=== PATIENT | male | born 1960 | race Caucasian/White ===

== ENCOUNTER → 2018-06-22 22:04 | Outpatient (REF) | payer OTHER, SELFPAY ==
[2018-06-23 01:21] LABS: Hemoglobin A1C% w Est Avg Glu 5.9 % (4.0-6.0)
[2018-06-23 02:37] LABS: Prostate Specific Antigen 0.627 ng/mL (0.10-4.00)
[2018-06-23 03:00] LABS: Hep C Virus Ab w/Reflex Quant NEGATIVE s/c (NEGATIVE)
[2018-06-25 19:37] LABS: C Peptide 2.74 ng/mL (0.80-3.85)
== END ==
LOC: LAB 22:04
PROVIDERS: Visit Provider Family Medicine Addiction Medicine
DX: E11.9 Type 2 diabetes mellitus without complications (principal); E29.1 Testicular hypofunction; Z79.899 Other long term (current) drug therapy
CPT/HCPCS: 36415; 83036; 84153; 84681; 86803

== ENCOUNTER → 2018-12-04 17:09 | Outpatient (CLI) | payer OTHER, SELFPAY | PROVIDERS: Visit Provider Physician Assistant | DX: B99.8 Other infectious disease (principal); W57.XXXA Bitten or stung by nonvenomous insect and other nonvenomous arthropods, initial encounter | CPT/HCPCS: 87070; 87075; 87205 ==

== ENCOUNTER → 2019-07-17 15:35 | Outpatient (CLI) | payer OTHER, SELFPAY ==
--- NOTE | 2019-07-17 15:51 | DI.CT.S_ITS ---
PROCEDURE: CT CHEST WO CON INDICATIONS: HEMOPTYSIS, Possible pneumonia or tear TECHNIQUE: Noncontrast 5 mm thick sections acquired from the pulmonary apices to the posterior costophrenic angles. 1 mm lung window, 5 mm thick coronal and sagittal and 7 mm axial MIP reformats were then acquired. For radiation dose reduction, the following was used: automated exposure control, adjustment of mA and/or kV according to patient size. COMPARISON: None. FINDINGS: Image quality: Excellent. Lungs and pleura: There is a left-sided pneumonia pattern, involving the upper and lower lobes, without associated central mass or pleural effusion. The right lung appears normal. No pneumothorax. Central and peripheral airways are patent and normal in caliber. Mediastinum: Heart size is normal. No pericardial effusion. No mediastinal adenopathy by size criteria. Thoracic aorta and central pulmonary arteries are normal in size. Esophagus is mildly enlarged in caliber and contains fluid and a small amount of debris. No hiatal hernia. Bones and chest wall: No suspicious bony lesions. No vertebral body compression fractures. No axillary or supraclavicular adenopathy by size criteria. Thyroid gland is not well-seen by this noncontrast technique. Abdomen: Visualized upper abdominal solid organs and bowel loops appear normal in the absence of contrast. IMPRESSION: 1. Left upper and lower lobe pneumonia, no right-sided pneumonia found. No sign of pleural effusion or pneumothorax. 2. Incidental note is made of mild dilatation of the esophagus with presence of fluid and a small amount of debris within the esophagus at time of scanning. Please note that this can represent an early manifestation of distal esophageal mass or stricture and followup assessment of the esophagus likely is warranted either by esophagram or endoscopy, and depending on the clinical status. Dictated by: Jose Miguel Kamara M.D. on 07/18/2019 at 9:19 Approved by: Jose Miguel Kamara M.D. on 07/18/2019 at 9:24
== END ==
PROVIDERS: PCP Family Medicine Addiction Medicine; Referring Provider Family Medicine Addiction Medicine; Visit Provider Family Medicine Addiction Medicine
DX: J18.9 Pneumonia, unspecified organism (principal); R04.2 Hemoptysis; K22.8 Other specified diseases of esophagus
CPT/HCPCS: 71250

== ENCOUNTER → 2019-07-27 15:11 | Outpatient (CLI) | payer OTHER, SELFPAY ==
--- NOTE | 2019-07-27 | DI.RAD.S_ITS ---
PROCEDURE: XR CHEST 2V INDICATIONS: PNEUMONIA TECHNIQUE: 2 views of the chest were acquired. COMPARISON: [facility], CT, CT CHEST WO CON, 07/17/2019, 16:15. FINDINGS: Surgical changes and devices: None. Lungs and pleura: Lungs are abnormal with a persistent mild pneumonia pattern at the left lung base posterior to the heart, but improved more superiorly over the left upper lobe with reference to the prior CT scanning performed 07/17/19. No pleural effusions or pneumothorax. Mediastinum: Mediastinal contours are normal. Heart size is normal. Bones and chest wall: No suspicious bony abnormalities. Soft tissues appear unremarkable. IMPRESSION: Improvement in left upper lobe pneumonia, persistent left lower lobe pneumonia behind the heart. Dictated by: Jose Miguel Kamara M.D. on 07/27/2019 at 16:41 Approved by: Jose Miguel Kamara M.D. on 07/27/2019 at 16:44
== END ==
PROVIDERS: PCP Family Medicine Addiction Medicine; Referring Provider Family Medicine Addiction Medicine; Visit Provider Family Medicine Addiction Medicine
DX: J18.9 Pneumonia, unspecified organism (principal)
CPT/HCPCS: 71046

== ENCOUNTER 2019-08-01 19:44 | Emergency (ER) | payer OTHER, SELFPAY ==
[2019-08-01 20:13] VITALS: BP 135/79; PULSE 95; RESP 18; TEMP 36.8; O2SAT 99; BMI 37.5
--- NOTE | 2019-08-01 20:30 | DI.RAD.S_ITS ---
PROCEDURE: XR CHEST 2V INDICATIONS: sob, recent peumonia TECHNIQUE: 2 views of the chest were acquired. COMPARISON: [facility], CR, XR CHEST 2V, 07/27/2019, 15:11. FINDINGS: Surgical changes and devices: None. Lungs and pleura: Ill-defined air space opacity in bilateral lower lung hauser are seen concerning for bilateral lower lobe patchy infiltrates. No pleural effusions or pneumothorax. Mediastinum: Mediastinal contours are normal. Heart size is normal. Bones and chest wall: No suspicious bony abnormalities. Soft tissues appear unremarkable. IMPRESSION: Findings concerning for bilateral lower lobe small patchy infiltrates. Dictated by: Harrison Perez M.D. on 08/01/2019 at 21:11 Approved by: aHrrison Perez M.D. on 08/01/2019 at 21:12
--- NOTE | 2019-08-01 20:32 | ED_ITS ---
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 He has been treated for pneumonia with 2 different antibiotics since the beginning of this month. He has had a chest CT on 07/17/2019 as well as a chest x-ray on 07/27/2019. He was told on 07/27/2019 that his pneumonia was improving, but had had not fully resolved. He denies any chest pain or shortness of breath. He states his cough is dry, nonproductive he denies any abdominal pain nausea vomiting or diarrhea. Chart review illustrate chest CT on 07/16 illustrated left upper and lower lobe pneumonia. Also noted to have incidental mild dilation of esophagus. Patient states that they are planning on a scope after his pneumonia has resolved. Patient states that he was placed on a Z-Armaan after this. Repeat chest x-ray shows improvement of left upper lobe pneumonia on 07/26 but persistent left lower lobe pneumonia. He states that he was placed on a 10 day course of an antibiotic called cesspin. Patient states that he comes to the emergency department because his gave him the choice of coming to the emergency department or her calling 911. He states he feels tired, but overall improved since he started his antibiotics. He also has a history of hypertension on lisinopril and a diuretic, and is on a statin as well. Related Data Home Medications Medication Instructions Recorded Confirmed atorvastatin 40 mg tablet 40 mg PO DAILY 12/04/18 12/04/18 buprenorphine 8 mg-naloxone 2 mg 1 film SL DAILY 12/04/18 12/04/18 sublingual film furosemide 20 mg tablet 20 mg PO DAILY 12/04/18 12/04/18 lisinopril 20 mg tablet 20 mg PO DAILY 12/04/18 12/04/18 pantoprazole PO 12/04/18 12/04/18 Previous Rx's Medication Instructions Recorded mupirocin 2 % topical ointment 1 applic TOP BID #30 gram 12/04/18 doxycycline hyclate 100 mg PO BID #20 cap 08/01/19 Allergies Allergy/AdvReac Type Severity Reaction Status Date / Time Penicillins Allergy Severe skin Verified 12/04/18 14:02 peeled off Review of Systems <Maddy WoodsANDIP- - Last Filed: 08/01/19 20:49> Review of Systems Narrative: GENERAL: Denies chills, fatigue, malaise, fever, sweats. HEENT: Denies sinus pain, ear pain, sore throat, difficulty swallowing, dizziness. RESPIRATORY: See HPI CARDIOVASCULAR: Denies chest pain, palpitations, orthopnea, edema, GASTROINTESTINAL: Denies nausea, vomiting, abdominal pain, diarrhea, constipation, melena. : Denies dysuria, frequency, incontinence, hematuria, urinary retention. MUSCULOSKELETAL: denies weakness, joint pain, or bony pain SKIN: Denies rash, skin lesions, or other NEUROLOGIC: Denies weakness, headache, numbness, change in speech, confusion, seizures, incoordination. PSYCHIATRIC: No concerning psychosocial issues. 12 point review of systems is negative except for those stated above Patient History <Maddy White PineANDI bishopUNIV[facility] - Last Filed: 08/01/19 20:49> Medical History (Updated 08/01/19 @ 23:20 by Maddy Rios DO) Hypertension (Acute) Type 2 diabetes mellitus (Acute) tobacco type: vaping alcohol intake frequency: a few times a week Substance Use Type: does not use Exam <MaddyANDI LiebermanUNIVERS[facility] - Last Filed: 08/01/19 20:49> Narrative Exam Narrative: GENERAL: Obese male in no acute distress wearing mass HEAD: Atraumatic. Normocephalic. No temporal or scalp tenderness. EYES: Pupils equal round and reactive. Extraocular motions intact. No scleral icterus. No injection or drainage. ENT: Nose without bleeding, purulent drainage or septal hematoma. Throat without erythema, tonsillar hypertrophy or exudate. Uvula midline. Airway patent. Bilateral TMs pearly dawkins. NECK: Trachea midline. No JVD or lymphadenopathy. Supple, nontender, no meningeal signs. CARDIOVASCULAR: Regular rate and rhythm RESPIRATORY: Clear to auscultation. Breath sounds equal bilaterally. No wheezes, rales, or rhonchi. No cough. No increased respiratory effort. Speaking full sentences. GASTROINTESTINAL: Abdomen soft, non-tender, nondistended. No hepato- splenomegaly, or palpable masses. No guarding. EXTREMITIES: No clubbing, cyanosis, or edema. No joint tenderness, effusion, or edema noted. BACK: Nontender without deformity or crepitance. No flank tenderness. NEURO: AOx3. SKIN: No rash or erythema on visible skin Initial Vital Signs Initial Vital Signs: Vital Signs Temperature 98.3 F 08/01/19 20:13 Pulse Rate 95 H 08/01/19 20:13 Respiratory Rate 18 08/01/19 20:13 Blood Pressure 135/79 08/01/19 20:13 Pulse Oximetry 99 08/01/19 20:13 <DO William Caruso Last Filed: 08/02/19 01:50> Initial Vital Signs Initial Vital Signs: Vital Signs Temperature 98.3 F 08/01/19 20:13 Pulse Rate 95 H 08/01/19 20:13 Respiratory Rate 18 08/01/19 20:13 Blood Pressure 135/79 08/01/19 20:13 Pulse Oximetry 99 08/01/19 20:13 Course <ABBY Kincaid - Last Filed: 08/01/19 20:49> Course Course Narrative: Patient care initiated by myself and patient signed out to Dr. Rios at 9:00 p.m. with lab work and imaging and respiratory panel pending. Orders Ordered: ED Orders 08/01/19 20:09 Respiratory Panel (Film Array) Stat 08/01/19 20:30 XR chest 2V Stat 08/01/19 21:45 Complete Blood Count AUTO DIFF Stat Comprehensive Metabolic Panel Stat NT-proBNP (BNP-Adult 18+) Stat Procalcitonin Stat Vital Signs Vital signs: Vital Signs - 8 hr 08/01/19 20:13 08/01/19 23:51 Temperature 98.3 F Pulse Rate 95 H 70 Respiratory Rate 18 16 Blood Pressure 135/79 124/60 Pulse Oximetry 99 97 <DO William Caruso Last Filed: 08/02/19 01:50> Orders Ordered: ED Orders 08/01/19 20:09 Respiratory Panel (Film Array) Stat 08/01/19 20:30 XR chest 2V Stat 08/01/19 21:45 Complete Blood Count AUTO DIFF Stat Comprehensive Metabolic Panel Stat NT-proBNP (BNP-Adult 18+) Stat Procalcitonin Stat Vital Signs Vital signs: Vital Signs - 8 hr 08/01/19 20:13 08/01/19 23:51 Temperature 98.3 F Pulse Rate 95 H 70 Respiratory Rate 18 16 Blood Pressure 135/79 124/60 Pulse Oximetry 99 97 MDM - SOB/Dyspnea <Maddy Woods, MACHINE SETTER AND REPAIRER-BC - Last Filed: 08/01/19 20:49> Lab Data Result diagrams: 08/01/19 21:45 08/01/19 21:45 Labs: Lab Results 08/01/19 08/01/19 08/01/19 Range/Units 20:09 21:45 21:45 WBC 5.7 (4.5-11.0) X10^3/uL RBC 4.58 (4.5-5.9) X10^6/uL Hgb 13.5 (13.5-17.5) g/dL Hct 39.7 L (41-53) % MCV 86.6 (80-100) fL MCH 29.5 (26-34) PG MCHC 34.0 (30-36) % RDW 12.9 (11.6-14.8) % Plt Count 286 (150-400) X10^3/uL Neut % (Auto) 58.6 (50-75) % Lymph % (Auto) 29.2 (25-40) % Nobles % (Auto) 10.2 (3-14) % Eos % (Auto) 1.1 L (2-4) % Baso % (Auto) 0.9 (0-2) % Neut # (Auto) 3400 (2711-5185) /uL Lymph # (Auto) 1700 (0336-3861) /uL Nobles # (Auto) 600 (0-900) /uL Eos # (Auto) 100 (0-450) /uL Baso # (Auto) 100 (0-100) /uL Sodium 135 L (137-145) mmol/L Potassium 4.0 (3.4-5.1) mmol/L Chloride 100 (98-107) mmol/L Carbon Dioxide 28 (22-32) mmol/L BUN 19 (9-20) mg/dL Creatinine 0.75 (0.66-1.25) mg/dL Estimated GFR > 60.0 (>60) mL/min BUN/Creatinine Ratio 25.3 H (6-22) Glucose 258 H (70-100) mg/dL Calcium 9.1 (8.4-10.2) mg/dL Total Bilirubin 0.5 (0.2-1.3) mg/dL AST 49 (17-59) IU/L ALT 56 H (<50) IU/L Alkaline Phosphatase 72 (38-126) U/L NT-Pro-B Natriuret Pep 53 (<125) pg/mL Total Protein 7.5 (6.3-8.2) g/dL Albumin 4.3 (3.5-5.0) g/dL Globulin 3.2 (1.7-4.1) g/dL Albumin/Globulin Ratio 1.3 (1.0-2.8) Procalcitonin (<0.5) ng/mL Chlamy pneumoniae PCR Not detected (Not Detect) Adenovirus (PCR) Not detected (Not Detect) B.parapertussis DNA PCR Not detected (Not Detect) Coronavirus OC43 (PCR) Not detected (Not Detect) Coronavirus HKU1 (PCR) Not detected (Not Detect) Coronavirus 229E (PCR) Not detected (Not Detect) Coronavirus NL63 (PCR) Not detected (Not Detect) Human Metapneumovir PCR Not detected (Not Detect) Influenza Type A (PCR) Not detected (Not Detect) Influenza Type B (PCR) Not detected (Not Detect) M. pneumoniae (PCR) Not detected (Not Detect) Parainfluenza 1 (PCR) Not detected (Not Detect) Parainfluenza 2 (PCR) Not detected (Not Detect) Parainfluenza 3 (PCR) Not detected (Not Detect) Parainfluenza 4 (PCR) Not detected (Not Detect) RSV (PCR) Not detected (Not Detect) Entero/Rhino (PCR) Not detected (Not Detect) 08/01/19 Range/Units 21:45 WBC (4.5-11.0) X10^3/uL RBC (4.5-5.9) X10^6/uL Hgb (13.5-17.5) g/dL Hct (41-53) % MCV (80-100) fL MCH (26-34) PG MCHC (30-36) % RDW (11.6-14.8) % Plt Count (150-400) X10^3/uL Neut % (Auto) (50-75) % Lymph % (Auto) (25-40) % Nobles % (Auto) (3-14) % Eos % (Auto) (2-4) % Baso % (Auto) (0-2) % Neut # (Auto) (8317-6639) /uL Lymph # (Auto) (7358-3856) /uL Nobles # (Auto) (0-900) /uL Eos # (Auto) (0-450) /uL Baso # (Auto) (0-100) /uL Sodium (137-145) mmol/L Potassium (3.4-5.1) mmol/L Chloride (98-107) mmol/L Carbon Dioxide (22-32) mmol/L BUN (9-20) mg/dL Creatinine (0.66-1.25) mg/dL Estimated GFR (>60) mL/min BUN/Creatinine Ratio (6-22) Glucose (70-100) mg/dL Calcium (8.4-10.2) mg/dL Total Bilirubin (0.2-1.3) mg/dL AST (17-59) IU/L ALT (<50) IU/L Alkaline Phosphatase (38-126) U/L NT-Pro-B Natriuret Pep (<125) pg/mL Total Protein (6.3-8.2) g/dL Albumin (3.5-5.0) g/dL Globulin (1.7-4.1) g/dL Albumin/Globulin Ratio (1.0-2.8) Procalcitonin < 0.05 (<0.5) ng/mL Chlamy pneumoniae PCR (Not Detect) Adenovirus (PCR) (Not Detect) B.parapertussis DNA PCR (Not Detect) Coronavirus OC43 (PCR) (Not Detect) Coronavirus HKU1 (PCR) (Not Detect) Coronavirus 229E (PCR) (Not Detect) Coronavirus NL63 (PCR) (Not Detect) Human Metapneumovir PCR (Not Detect) Influenza Type A (PCR) (Not Detect) Influenza Type B (PCR) (Not Detect) M. pneumoniae (PCR) (Not Detect) Parainfluenza 1 (PCR) (Not Detect) Parainfluenza 2 (PCR) (Not Detect) Parainfluenza 3 (PCR) (Not Detect) Parainfluenza 4 (PCR) (Not Detect) RSV (PCR) (Not Detect) Entero/Rhino (PCR) (Not Detect) <Maddy C Blanca, DO - Last Filed: 08/02/19 01:50> Lab Data Attestation: I reviewed the patient's lab results. Labs: Lab Results 08/01/19 08/01/19 08/01/19 Range/Units 20:09 21:45 21:45 WBC 5.7 (4.5-11.0) X10^3/uL RBC 4.58 (4.5-5.9) X10^6/uL Hgb 13.5 (13.5-17.5) g/dL Hct 39.7 L (41-53) % MCV 86.6 (80-100) fL MCH 29.5 (26-34) PG MCHC 34.0 (30-36) % RDW 12.9 (11.6-14.8) % Plt Count 286 (150-400) X10^3/uL Neut % (Auto) 58.6 (50-75) % Lymph % (Auto) 29.2 (25-40) % Nobles % (Auto) 10.2 (3-14) % Eos % (Auto) 1.1 L (2-4) % Baso % (Auto) 0.9 (0-2) % Neut # (Auto) 3400 (0373-6372) /uL Lymph # (Auto) 1700 (7301-9840) /uL Nobles # (Auto) 600 (0-900) /uL Eos # (Auto) 100 (0-450) /uL Baso # (Auto) 100 (0-100) /uL Sodium 135 L (137-145) mmol/L Potassium 4.0 (3.4-5.1) mmol/L Chloride 100 (98-107) mmol/L Carbon Dioxide 28 (22-32) mmol/L BUN 19 (9-20) mg/dL Creatinine 0.75 (0.66-1.25) mg/dL Estimated GFR > 60.0 (>60) mL/min BUN/Creatinine Ratio 25.3 H (6-22) Glucose 258 H (70-100) mg/dL Calcium 9.1 (8.4-10.2) mg/dL Total Bilirubin 0.5 (0.2-1.3) mg/dL AST 49 (17-59) IU/L ALT 56 H (<50) IU/L Alkaline Phosphatase 72 (38-126) U/L NT-Pro-B Natriuret Pep 53 (<125) pg/mL Total Protein 7.5 (6.3-8.2) g/dL Albumin 4.3 (3.5-5.0) g/dL Globulin 3.2 (1.7-4.1) g/dL Albumin/Globulin Ratio 1.3 (1.0-2.8) Procalcitonin (<0.5) ng/mL Chlamy pneumoniae PCR Not detected (Not Detect) Adenovirus (PCR) Not detected (Not Detect) B.parapertussis DNA PCR Not detected (Not Detect) Coronavirus OC43 (PCR) Not detected (Not Detect) Coronavirus HKU1 (PCR) Not detected (Not Detect) Coronavirus 229E (PCR) Not detected (Not Detect) Coronavirus NL63 (PCR) Not detected (Not Detect) Human Metapneumovir PCR Not detected (Not Detect) Influenza Type A (PCR) Not detected (Not Detect) Influenza Type B (PCR) Not detected (Not Detect) M. pneumoniae (PCR) Not detected (Not Detect) Parainfluenza 1 (PCR) Not detected (Not Detect) Parainfluenza 2 (PCR) Not detected (Not Detect) Parainfluenza 3 (PCR) Not detected (Not Detect) Parainfluenza 4 (PCR) Not detected (Not Detect) RSV (PCR) Not detected (Not Detect) Entero/Rhino (PCR) Not detected (Not Detect) 08/01/19 Range/Units 21:45 WBC (4.5-11.0) X10^3/uL RBC (4.5-5.9) X10^6/uL Hgb (13.5-17.5) g/dL Hct (41-53) % MCV (80-100) fL MCH (26-34) PG MCHC (30-36) % RDW (11.6-14.8) % Plt Count (150-400) X10^3/uL Neut % (Auto) (50-75) % Lymph % (Auto) (25-40) % Nobles % (Auto) (3-14) % Eos % (Auto) (2-4) % Baso % (Auto) (0-2) % Neut # (Auto) (8493-5477) /uL Lymph # (Auto) (2279-2460) /uL Nobles # (Auto) (0-900) /uL Eos # (Auto) (0-450) /uL Baso # (Auto) (0-100) /uL Sodium (137-145) mmol/L Potassium (3.4-5.1) mmol/L Chloride (98-107) mmol/L Carbon Dioxide (22-32) mmol/L BUN (9-20) mg/dL Creatinine (0.66-1.25) mg/dL Estimated GFR (>60) mL/min BUN/Creatinine Ratio (6-22) Glucose (70-100) mg/dL Calcium (8.4-10.2) mg/dL Total Bilirubin (0.2-1.3) mg/dL AST (17-59) IU/L ALT (<50) IU/L Alkaline Phosphatase (38-126) U/L NT-Pro-B Natriuret Pep (<125) pg/mL Total Protein (6.3-8.2) g/dL Albumin (3.5-5.0) g/dL Globulin (1.7-4.1) g/dL Albumin/Globulin Ratio (1.0-2.8) Procalcitonin < 0.05 (<0.5) ng/mL Chlamy pneumoniae PCR (Not Detect) Adenovirus (PCR) (Not Detect) B.parapertussis DNA PCR (Not Detect) Coronavirus OC43 (PCR) (Not Detect) Coronavirus HKU1 (PCR) (Not Detect) Coronavirus 229E (PCR) (Not Detect) Coronavirus NL63 (PCR) (Not Detect) Human Metapneumovir PCR (Not Detect) Influenza Type A (PCR) (Not Detect) Influenza Type B (PCR) (Not Detect) M. pneumoniae (PCR) (Not Detect) Parainfluenza 1 (PCR) (Not Detect) Parainfluenza 2 (PCR) (Not Detect) Parainfluenza 3 (PCR) (Not Detect) Parainfluenza 4 (PCR) (Not Detect) RSV (PCR) (Not Detect) Entero/Rhino (PCR) (Not Detect) Imaging Data Chest x-ray: Radiologist's Impression: MDM Narrative Medical decision making narrative: Patient was signed out to myself by DEBORA Woods. Patient's CBC shows a normal white count, hematocrit is 39. Eosinophils are 1.1 but otherwise normal differential. Chemistry shows a sodium 135, glucose of 258 with normal electrolytes and renal function. Patient's ALT is 56. Procalcitonin is negative. Serology for respiratory PCR is pending and coronavirus 19 PCR is pending. Patient has been afebrile in the department, his vital signs are otherwise normal. He has not had worsening symptoms but came in today because he had an elevated temperature which she has not had for some time. He actually states that he has not been having any worsening symptoms just has not resolved. Patient was on 2 rounds of antibiotics azithromycin and Ceftin. Discussed his chest x-ray continues to show lower lobe pneumonia there is a possibility that this could be new but can also take time to resolve. Discussed with patient there is also potential for ball virus and we discussed watchful waiting if he continues to have fevers potentially starting antibiotics and was given a prescription but if is continuing to improve would hold antibiotics. He was given strict return precautions and asked to call back and 5 days if he had not heard from the hospital regarding his results. Patient why for both asked to self isolate during this time frame as we have pending testing. Both were comfortable with this plan and we discussed that he can also discuss with his primary care about starting antibiotics if he has further questions this week. Discharge Plan Departure Patient Disposition: Home Clinical Impression: Pneumonia Discharge Date/Time: 08/01/19 23:51 Activity Restrictions/Additional Instructions: Follow-up in the next several days for recheck. Continue Tylenol as needed for any fevers. Continue to self isolate for the next 7-10 days. Do not start antibiotics but if your continuing to have symptoms with elevated fevers contact her physician to discuss if you should start them. A prescription has been included. Prescription was sent to [facility]. You have been tested for coronavirus 19, this test is pending over the next several days likely turnaround is 4-5 days. You may call to contact the hospital if you have not heard back in 5 days about your results. Continue home medications as prescribed. Prescriptions: New doxycycline hyclate 100 mg capsule 100 mg PO BID Qty: 20 RF: 0 No Action atorvastatin 40 mg tablet 40 mg PO DAILY RF: 0 lisinopril 20 mg tablet 20 mg PO DAILY RF: 0 furosemide 20 mg tablet 20 mg PO DAILY RF: 0 buprenorphine-naloxone [Suboxone] 8-2 mg film 1 film SL DAILY RF: 0 pantoprazole PO RF: 0 mupirocin 2 % ointment 1 applic TOP BID Qty: 30 RF: 0 Referrals: Charles Hester MD [Primary Care Provider] -
[2019-08-01 22:03] LABS: Add Manual Diff / Slide Review NO; Basophils Absolute Auto 100 /uL (0-100); Basophils Percent Auto 0.9 % (0-2); Eosinophils Absolute Auto 100 /uL (0-450); Eosinophils Percent Auto 1.1 % (2-4); Hematocrit 39.7 % (41-53); Hemoglobin 13.5 g/dL (13.5-17.5); Lymphocytes Absolute Auto 1700 /uL (1100-4500); Lymphocytes Percent Auto 29.2 % (25-40); Mean Corpuscular Hemoglobin 29.5 PG (26-34); Mean Corpuscular Volume 86.6 fL (80-100); Monocytes Absolute Auto 600 /uL (0-900); Monocytes Percent Auto 10.2 % (3-14); Neutrophils Absolute Auto 3400 /uL (1500-7000); Neutrophils Percent Auto 58.6 % (50-75); Platelet Count 286 X10^3/uL (150-400); Red Blood Cell Count 4.58 X10^6/uL (4.5-5.9); Red Cell Distribution Width 12.9 % (11.6-14.8); White Blood Cell Count 5.7 X10^3/uL (4.5-11.0)
[2019-08-01 22:06] LABS: Alanine Aminotransferase 56 IU/L (<50); Albumin 4.3 g/dL (3.5-5.0); Albumin Globulin Ratio 1.3 (1.0-2.8); Alkaline Phosphatase 72 U/L (38-126); Aspartate Aminotransferase 49 IU/L (17-59); BUN Creatinine Ratio 25.3 (6-22); Bilirubin Total 0.5 mg/dL (0.2-1.3); Blood Urea Nitrogen 19 mg/dL (9-20); Calcium 9.1 mg/dL (8.4-10.2); Carbon Dioxide 28 mmol/L (22-32); Chloride 100 mmol/L (98-107); Estimated Glomerular Filt Rate > 60.0 mL/min (>60); Globulin 3.2 g/dL (1.7-4.1); Glucose 258 mg/dL (70-100); HEMOLYSIS < 15 (0-50); Sodium 135 mmol/L (137-145); Total Protein 7.5 g/dL (6.3-8.2)
[2019-08-01 22:15] LABS: NT-proBNP (BNP-Adult 18+) 53 pg/mL (<125)
[2019-08-01 22:29] LABS: Procalcitonin < 0.05 ng/mL (<0.5)
[2019-08-01 22:58] LABS: Adenovirus Not Detected (Not Detect); Bordetella pertussis Not Detected (Not Detect); Chlamydophila pneumoniae Not Detected (Not Detect); Coronavirus 229E Not Detected (Not Detect); Coronavirus HKU1 Not Detected (Not Detect); Coronavirus NL 63 Not Detected (Not Detect); Coronavirus OC43 Not Detected (Not Detect); Human Metapneumovirus Not Detected (Not Detect); Human Rhinovirus/Enterovirus Not Detected (Not Detect); Influenza A Not Detected (Not Detect); Influenza B Not Detected (Not Detect); Mycoplasma pneumoniae Not Detected (Not Detect); Parainfluenza Virus 1 Not Detected (Not Detect); Parainfluenza Virus 2 Not Detected (Not Detect); Parainfluenza Virus 3 Not Detected (Not Detect); Parainfluenza Virus 4 Not Detected (Not Detect); Respiratory Syncytial Virus Not Detected (Not Detect)
[2019-08-01 23:51] VITALS: BP 124/60; PULSE 70; RESP 16; O2SAT 97
[2019-08-03 14:11] LABS: COVID19 Sendout Not Detected (Not Detected)
== END 2019-08-01 23:51 | disposition home or self-care (01) ==
PROVIDERS: Nurse Practitioner Family; Emergency Provider Emergency Medicine; PCP Family Medicine Addiction Medicine
DX: J18.9 Pneumonia, unspecified organism (principal); R50.9 Fever, unspecified
CPT/HCPCS: 36415; 71046; 80053; 83880; 84145; 85025; 87633; 87635; 99281; 99284